=== PATIENT | male | born 1980 | race Caucasian/White ===

== ENCOUNTER 2021-07-28 11:56 | Emergency (ER) | payer OTHER ==
[~2021-07-28] VITALS: Ht 180.3 cm; Wt 114.0 kg
[2021-07-28] MEDS ORDERED: NITROGLYCERIN SUBLINGUAL 0.4 MG BOTTLE OF 25. SL PRN (12:45)
--- NOTE | 2021-07-28 12:51 | RAD ---
EXAM: CT head without contrast INDICATION: Confusion, body shaking, and hypertension, trouble speaking COMPARISON: None TECHNIQUE: Axial CT imaging through the head without intravenous contrast. One or more of the following individualized dose reduction techniques were utilized for this examinat ion: 1. Automated exposure control 2. Adjustment of the mA and/or kV according to patient size 3. Use of iterative reconstruction technique. FINDINGS: The ventricles and sulci are within normal limits. Narvaez-white matter differentiation is maintained. There is no intracranial hemorrhage, acute infarct, or mass lesion. Basal cisterns are clear. The skull and scalp are intact. Paranasal sinuses and mastoid air cells are clear. Globes and orbits are intact. IMPRESSION: No acute intracranial abnormality. FOR INTERNAL CODING PURPOSES Critical result: Findings discussed with the ER physician at 07/28/2021 12:48 PM. RESULT CODE: (C) Electronically signed by: Pema Martinez MD (07/28/2021 12:48 PM) [id number]
--- NOTE | 2021-07-28 13:10 | RAD ---
EXAMINATION: XR CHEST 1V CLINICAL HISTORY: Hypertension EXAM DATE/TIME: 07/28/2021 12:55 PM COMPARISON: None FINDINGS: Lines, Tubes, and Devices: None. Cardiomediastinal Silhouette: Normal heart size. Lungs and Pleura: Pulmonary hypoexpansion without evidence of focal airspace consolidation or pleural effusion. Pulmonary vasculature within normal limits. Bones and Soft Tissues: No acute osseous abnormality. IMPRESSION: No definitive evidence of acute cardiopulmonary abnormality. Electronically signed by: Jhon Bhatt DO (07/28/2021 1:07 PM) TEJINDER
[2021-07-28] MEDS ORDERED: IOHEXOL 350 MG/ML 100 ML VIAL. IV ONE ×2 (13:15→16:15)
[2021-07-28] MEDS ORDERED: CONTRAST GIVEN. MC PRN (13:15)
[2021-07-28] MEDS ORDERED: IV NORMAL SALINE 1,000ML 1,000 ML IV ONE (13:15)
[2021-07-28 13:17] LABS: BASO # 0.1 x10^3/uL (0.0-0.2); BASO % 1 % (0-3); EOS % 1 % (0-3); HEMATOCRIT 52.9 % (39.0-53.0); HEMOGLOBIN 18.3 g/dL (13.0-17.5); LYMPH # 1.3 x10^3/uL (1.0-4.8); LYMPH % 18 % (24-48); MEAN CORPUSCULAR HEMOGLOBIN 31 pg (25-35); MEAN CORPUSCULAR HGB CONC 35 g/dL (31-37); MEAN CORPUSCULAR VOLUME 90 fL (79-100); MONO # 0.5 x10^3/uL (0.0-1.1); MONO % 7 % (0-9); NEUT # 5.1 x10^3uL (1.8-7.7); NEUT % 73 % (31-73); PLATELET COUNT 199 x10^3/uL (140-400); RED CELL DISTRIBUTION WIDTH 13.8 % (11.5-14.5); WHITE BLOOD COUNT 7.1 x10^3/uL (4.0-11.0)
--- NOTE | 2021-07-28 13:22 | EKG ---
[address] [address] Test Date: 2021-07-28 Test Time: 13:03:30 Pat Name: NADEGE DAVISON Department: Room: Gender: M Engineering Programmer: : [id number] Requested By: FELICITY CAMARA Order Number: [id number] Reading MD: Yovany Carrillo MD Measurements Intervals [place] Rate: 121 P: 36 WA: 160 QRS: 17 QRSD: 86 T: -11 QT: 300 QTc: 429 Interpretive Statements SINUS TACHYCARDIA Electronically Signed On 07-30-2021 9:14:06 CDT by Yovany Carrillo MD
[2021-07-28 13:23] LABS: BARBITURATES NEG (NEG); BENZODIAZEPINES NEG (NEG); CANNABINOIDS NEG (NEG); COCAINE NEG (NEG); METHADONE NEG (NEG); OPIATES NEG (NEG); PHENCYCLIDINE NEG (NEG)
[2021-07-28 13:26] LABS: CALCIUM 9.2 mg/dL (8.5-10.1); GFR 83.2; POTASSIUM 4.1 mmol/L (3.5-5.1)
[2021-07-28] MEDS ORDERED: niCARdipine INJ. IV ONE (13:28)
[2021-07-28] MEDS ORDERED: IV NORMAL SALINE 250ML 250 ML ONE (13:28)
[2021-07-28 13:32] LABS: AMPHETAMINE/METHAMPHETAMINE NEG (NEG)
[2021-07-28 13:39] LABS: ALBUMIN 4.3 g/dL (3.4-5.0); ALBUMIN/GLOBULIN RATIO 1.5 (1.0-1.7); TOTAL BILIRUBIN 0.5 mg/dL (0.2-1.0); TOTAL PROTEIN 7.2 g/dL (6.4-8.2)
[2021-07-28 13:42] LABS: BILIRUBIN,URINE NEG (NEG); CLARITY,URINE CLEAR; COLOR,URINE YELLOW; GLUCOSE,URINE NEG (NEG)
[2021-07-28 13:43] LABS: BACTERIA,URINE 0 /HPF (0-FEW); NITRITE,URINE NEG (NEG); RBC,URINE 0 /HPF (0-2); UROBILINOGEN,URINE 0.2 mg/dL (0.2 mg/dL); WBC,URINE OCC /HPF (0-4)
--- NOTE | 2021-07-28 14:08 | RAD ---
STUDY: CT angiography of the head and neck INDICATION: Altered mental status COMPARISON: CT head 07/28/2021 TECHNIQUE: Axial CT imaging of the head and neck utilizing angiography protocol and performed after t he intravenous administration of 100 mL Omnipaque 350 contrast. Multiplanar reformats and 3D MIP acqu isitions were obtained. Encountered areas of stenosis are measured per NASCET criteria. One or more of the following individualized dose reduction techniques were utilized for this examinat ion: 1. Automated exposure control 2. Adjustment of the mA and/or kV according to patient size 3. Use of iterative reconstruction technique. FINDINGS: CTA NECK: Arch/Proximal Great Vessels: The arch is normal in configuration. Great vessel origins are patent. Carotid Bifurcation/Cervical ICA: Bilateral common carotid, internal carotid, and external carotid ar teries are normal in caliber and patent. Vertebral Arteries: Vertebral arteries are normal in caliber and patent. CTA HEAD: Posterior Circulation: Intradural vertebral arteries, basilar artery, superior cerebellar arteries, a nd posterior cerebral arteries are normal in caliber and patent Anterior Circulation: Internal carotid arteries, anterior cerebral arteries, and middle cerebral oscar renan are normal in caliber and patent. Veins: Dural venous sinuses are patent. IMPRESSION: No acute arterial abnormality in the head or neck. Electronically signed by: Pema Martinez MD (07/28/2021 2:06 PM) [id number]
--- NOTE | 2021-07-28 14:23 | PHYS DOC ---
Past History Past Surgical History: No Surgical History (FELICITY CAMARA APRN) Alcohol Use: Rarely (FELICITY CAMARA APRN) General Adult EDM: Chief Complaint: HYPERTENSION HPI: HPI: Patient is a 41-year-old male presents with hypertension. Patient states "I checked my blood pressure this morning it was 200/100 and I felt kind of out of it". Patient is also reporting shortness of breath, headache. Patient's blood pressure on arrival was 180s, HR 120s. Patient is also reporting anxiety. Patient states "I was at work today and I was sitting there when all of a sudden I started breaking out in a sweat". "That is what made me decided to come to the emergency room". Patient is alert and oriented x4. Denies chest pain. Denies drug use. "I did drink 6 or 7 beers yesterday during the day". Patient reports history of hypertension. (FELICITY CAMARA APRN) Review of Systems: Review of Systems: Constitutional: Denies fever or chills Eyes: Denies change in visual acuity HENT: Denies nasal congestion or sore throat Respiratory: Reports shortness of breath. Denies cough. Cardiovascular: Denies chest pain or edema GI: Denies abdominal pain, nausea, vomiting, bloody stools or diarrhea : Denies dysuria Musculoskeletal: Denies back pain or joint pain Integument: Denies rash Neurologic: Reports headache. Denies focal weakness or sensory changes Endocrine: Denies polyuria or polydipsia Lymphatic: Denies swollen glands Psychiatric: Denies depression or anxiety (FELICITY CAMARA APRN) Current Medications: Current Meds: Current Medications Medications (Trade) Dose Ordered Sig/Kathleen Start Time Stop Time Status Last Admin Dose Admin Info (Do NOT chart on this entry -- for MONITORING) 1 each PRN DAILY PRN 07/28/21 13:15 07/30/21 13:14 Iohexol (Omnipaque 350 Mg/ml) 100 ml 1X ONCE 07/28/21 13:15 07/28/21 13:16 DC 07/28/21 13:31 100 ML Lorazepam (Ativan Inj) 2 mg STK-MED ONCE 07/28/21 13:13 07/28/21 13:13 DC Nicardipine HCl (Cardene) 25 mg STK-MED ONCE 07/28/21 13:28 07/28/21 13:29 DC Nicardipine HCl 50 mg/Sodium Chloride 250 ml @ 25 mls/hr CONT PRN 07/28/21 13:15 07/28/21 13:35 25 MLS/HR Nitroglycerin (Nitrostat) 0.4 mg PRN Q5MIN PRN 07/28/21 12:45 07/28/21 12:48 0.4 MG Sodium Chloride 250 ml @ As Directed STK-MED ONCE 07/28/21 13:28 07/28/21 13:29 DC (FELICITY CAMARA APRN) Allergies: Allergies: Allergies Coded Allergies Type Severity Reaction Last Updated Verified No Known Drug Allergies 07/28/21 No (FELICITY CAMARA APRN) Physical Exam: PE: Constitutional: Well developed, well nourished, no acute distress, non-toxic appearance. [] HENT: Normocephalic, atraumatic, bilateral external ears normal, oropharynx moist, no oral exudates, nose normal. [] Eyes: PERRLA, EOMI, conjunctiva normal, no discharge. [] Neck: Normal range of motion, no tenderness, supple, no stridor. [] Cardiovascular: Heart rate sinus tachycardia Lungs & Thorax: Bilateral breath sounds clear to auscultation [] Abdomen: Bowel sounds normal, soft, no tenderness, no masses, no pulsatile masses. [] Skin: Warm, dry, no erythema, no rash. [] Back: No tenderness, no CVA tenderness. [] Extremities: No tenderness, no cyanosis, no clubbing, ROM intact, no edema. [] Neurologic: Alert and oriented X 3, normal motor function, normal sensory function, no focal deficits noted. [] Psychologic: Affect normal, judgement normal, mood normal. [] (FELICITY CAMARA APRN) Current Patient Data: Labs: Laboratory Tests Test 07/28/21 12:43 07/28/21 12:53 07/28/21 13:21 White Blood Count 7.1 x10^3/uL (4.0-11.0) Red Blood Count 5.90 x10^6/uL (4.30-5.70) H Hemoglobin 18.3 g/dL (13.0-17.5) H Hematocrit 52.9 % (39.0-53.0) Mean Corpuscular Volume 90 fL (79-100) Mean Corpuscular Hemoglobin 31 pg (25-35) Mean Corpuscular Hemoglobin Concent 35 g/dL (31-37) Red Cell Distribution Width 13.8 % (11.5-14.5) Platelet Count 199 x10^3/uL (140-400) Neutrophils (%) (Auto) 73 % (31-73) Lymphocytes (%) (Auto) 18 % (24-48) L Monocytes (%) (Auto) 7 % (0-9) Eosinophils (%) (Auto) 1 % (0-3) Basophils (%) (Auto) 1 % (0-3) Neutrophils # (Auto) 5.1 x10^3uL (1.8-7.7) Lymphocytes # (Auto) 1.3 x10^3/uL (1.0-4.8) Monocytes # (Auto) 0.5 x10^3/uL (0.0-1.1) Eosinophils # (Auto) 0.0 x10^3/uL (0.0-0.7) Basophils # (Auto) 0.1 x10^3/uL (0.0-0.2) Urine Collection Type Unknown Urine Color Yellow Urine Clarity Clear Urine pH 7.5 Urine Specific [place] 1.020 Urine Protein 100 mg/dl (NEG-TRACE) Urine Glucose (UA) Neg mg/dL (NEG) Urine Ketones (Stick) 15 mg/dL (NEG) Urine Blood Neg (NEG) Urine Nitrite Neg (NEG) Urine Bilirubin Neg (NEG) Urine Urobilinogen Dipstick 0.2 mg/dL (0.2 mg/dL) Urine Leukocyte Esterase Trace (NEG) Urine RBC 0 /HPF (0-2) Urine WBC Occ /HPF (0-4) Urine Bacteria 0 /HPF (0-FEW) Urine Mucus Slight /LPF Sodium Level 139 mmol/L (136-145) Potassium Level 4.1 mmol/L (3.5-5.1) Chloride Level 99 mmol/L (98-107) Carbon Dioxide Level 28 mmol/L (21-32) Anion Gap 12 (6-14) Blood Urea Nitrogen 12 mg/dL (8-26) Creatinine 1.0 mg/dL (0.7-1.3) Estimated GFR (Cockcroft-Gault) 83.2 BUN/Creatinine Ratio 12 (6-20) Glucose Level 121 mg/dL (70-99) H Calcium Level 9.2 mg/dL (8.5-10.1) Total Bilirubin 0.5 mg/dL (0.2-1.0) Aspartate Amino Transferase (AST) 33 U/L (15-37) Alanine Aminotransferase (ALT) 59 U/L (16-63) Alkaline Phosphatase 89 U/L (46-116) Troponin I Quantitative < 0.017 ng/mL (0-0.055) PI-Reb-C-Type Natriuretic Peptide 11 pg/mL (0-124) Total Protein 7.2 g/dL (6.4-8.2) Albumin 4.3 g/dL (3.4-5.0) Albumin/Globulin Ratio 1.5 (1.0-1.7) Urine Opiates Screen Neg (NEG) Urine Methadone Screen Neg (NEG) Urine Barbiturates Neg (NEG) Urine Phencyclidine Screen Neg (NEG) Urine Amphetamine/Methamphetamine Neg (NEG) Urine Benzodiazepines Screen Neg (NEG) Urine Cocaine Screen Neg (NEG) Urine Cannabinoids Screen Neg (NEG) Urine Ethyl Alcohol Pos (NEG) Glucose (Fingerstick) 124 mg/dL (70-99) H Prothrombin Time 10.4 SEC (9.4-11.4) Prothrombin Time INR 1.0 (0.9-1.1) Activated Partial Thromboplast Time 23 SEC (23-33) D-Dimer (Disha) Pending Vital Signs: Vital Signs Date Time Temp Pulse Resp B/P (MAP) Pulse Ox O2 Delivery O2 Flow Rate FiO2 07/28/21 12:55 98.7 109 18 203/141 99 (FELICITY CAMARA APRN) EKG: EKG: Sinus tachycardia, heart rate 121 bpm. [] Read by Dr. Beebe at 1311. (FELICITY CAMARA APRN) Radiology/Procedures: Radiology/Procedures: []STUDY: CT angiography of the head and neck INDICATION: Altered mental status COMPARISON: CT head 07/28/2021 TECHNIQUE: Axial CT imaging of the head and neck utilizing angiography protocol and performed after the intravenous administration of 100 mL Omnipaque 350 contrast. Multiplanar reformats and 3D MIP acquisitions were obtained. Encountered areas of stenosis are measured per NASCET criteria. One or more of the following individualized dose reduction techniques were utilized for this examination: 1. Automated exposure control 2. Adjustment of the mA and/or kV according to patient size 3. Use of iterative reconstruction technique. FINDINGS: CTA NECK: Arch/Proximal Great Vessels: The arch is normal in configuration. Great vessel origins are patent. Carotid Bifurcation/Cervical ICA: Bilateral common carotid, internal carotid, and external carotid arteries are normal in caliber and patent. Vertebral Arteries: Vertebral arteries are normal in caliber and patent. CTA HEAD: Posterior Circulation: Intradural vertebral arteries, basilar artery, superior cerebellar arteries, and posterior cerebral arteries are normal in caliber and patent Anterior Circulation: Internal carotid arteries, anterior cerebral arteries, and middle cerebral arteries are normal in caliber and patent. Veins: Dural venous sinuses are patent. IMPRESSION: No acute arterial abnormality in the head or neck. Electronically signed by: Pema Martinez MD (07/28/2021 2:06 PM) [id number] EXAMINATION: XR CHEST 1V CLINICAL HISTORY: Hypertension EXAM DATE/TIME: 07/28/2021 12:55 PM COMPARISON: None FINDINGS: Lines, Tubes, and Devices: None. Cardiomediastinal Silhouette: Normal heart size. Lungs and Pleura: Pulmonary hypoexpansion without evidence of focal airspace consolidation or pleural effusion. Pulmonary vasculature within normal limits. Bones and Soft Tissues: No acute osseous abnormality. IMPRESSION: No definitive evidence of acute cardiopulmonary abnormality. EXAM: CT head without contrast INDICATION: Confusion, body shaking, and hypertension, trouble speaking COMPARISON: None TECHNIQUE: Axial CT imaging through the head without intravenous contrast. One or more of the following individualized dose reduction techniques were utilized for this examination: 1. Automated exposure control 2. Adjustment of the mA and/or kV according to patient size 3. Use of iterative reconstruction technique. FINDINGS: The ventricles and sulci are within normal limits. Narvaez-white matter differentiation is maintained. There is no intracranial hemorrhage, acute infarct, or mass lesion. Basal cisterns are clear. The skull and scalp are intact. Paranasal sinuses and mastoid air cells are clear. Globes and orbits are intact. IMPRESSION: No acute intracranial abnormality. FOR INTERNAL CODING PURPOSES Critical result: Findings discussed with the ER physician at 07/28/2021 12:48 PM. RESULT CODE: (C) (FELICITY CAMARA APRN) Heart Score: C/O Chest Pain: No Risk Factors: Risk Factors: DM, Current or recent (<one month) smoker, HTN, HLP, family history of CAD, obesity. Risk Scores: Score 0 - 3: 2.5% MACE over next 6 weeks - Discharge Home Score 4 - 6: 20.3% MACE over next 6 weeks - Admit for Clinical Observation Score 7 - 10: 72.7% MACE over next 6 weeks - Early Invasive Strategies (FELICITY CAMARA APRN) Course & Med Decision Making: Course & Med Decision Making Pertinent Labs and Imaging studies reviewed. (See chart for details) [] 41-year-old male presents with hypertension. On arrival patient's blood pressure was in the 180s/100s. Patient was tachycardic at 120s. Patient given 2 nitros and blood pressure decreased to 160s. Patient is still tachycardic. Patient given NS bolus, aspirin, Ativan. CT head was negative for intracranial bleeding or abnormality. CTA head and neck ordered which was unremarkable. NIH 0. Covid test is negative. Patient is alert and oriented x4. D-dimer elevated at 0.90. CTA ordered. No evidence of PE indicated on imaging. Urine negative for infection. UDS positive for alcohol, less than 10. I originally spoke with Dr. Villasenor who suggested patient be admitted for hypertensive encephalopathy and given aspirin. Patient unable to be admitted to [facility]. I spoke with Dr. Shah who is willing to accept patient at [facility]. Dr. Nielson was consulted and will be seeing patient at [facility]. Patient's blood pressure has continued to stay below 180. Symptoms have improved. Patient is saying that he feels much better and he does not want to be admitted to the hospital. Discussed risk of leaving and not being admitted. Patient states that he understands the risk but does not want to be admitted. Patient does report that he has had alcohol withdrawal symptoms in the past. "I wonder if it is because I drink too much this weekend". "I may not have taken my blood pressure medicine for the last couple of days". Patient agrees to sign AMA paperwork. Patient's blood pressure is 176/100, heart rate 120s upon disposition. Patient states that he will call his PCP and make a follow-up appointment. (FELICITY CAMARA APRN) Course & Med Decision Making I was the Attending physician on the above date of service of this patient. This patient was evaluated, examined, treated, and dispositioned from the emergency department by the mid-level practitioner. PRODUCT MARKETING COORDINATOR requested assistance on management while in ER setting, likely hypertensive encephalopathy that significantly improved with x2 sublingual nitro administered in ER setting. I discussed need for neurology consultation and hospital admission for continued inpatient medical management Electronically signed, Dada Beebe DO (DADA BEEBE DO) Claire Disclaimer: Claire Disclaimer: This electronic medical record was generated, in whole or in part, using a voice recognition dictation system. (FELICITY CAMARA APRN) Departure Departure: Impression: Primary Impression: Hypertensive emergency Additional Impression: Alcoholism Disposition: 01 HOME / SELF CARE / HOMELESS Condition: STABLE Referrals: SOL HALL (PCP) Patient Instructions: Alcohol Withdrawal, Hypertension, [id number] Additional Instructions: You are seen in the emergency room for elevated blood pressure and altered mental status. You were given nitro x2 in the emergency room which decreased your blood pressure. CTA of head and neck was negative for acute abnormalities. We suggested that you stay as an inpatient to be monitored and possibly have further testing. You were unwilling to be admitted and signed AMA paperwork. Please call your PCP and make an appointment to discuss further treatment. Return to the emergency room if you have worsening symptoms or concerns EMERGENCY DEPARTMENT GENERAL DISCHARGE INSTRUCTIONS Thank you for coming to [facility] (ED) today and trusting us with you care. We trust that you had a positivie experience in our Emergency Department. If you wish to speak to the department management, you may call the director at [phone]. YOUR FOLLOW UP INSTRUCTIONS ARE FOLLOWS: 1. Do you have a private Doctor? If you do not have a private doctor, please ask for a resource list of physicians or clinics that may be able to assist you with follow up care. 2. The Emergency Physician has interpreted your x-rays. The X-Ray specialist will also review them. If there is a change in the findings, you will be notified in 48 hours when at all possible. 3. A lab test or culture has been done, your results will be reviewed and you will be notified if you need a change in treatment. ADDITIONAL INSTRUCTIONS AND INFORMATION: 1. Your care today has been supervised by a physician who is specially trained in emergency care. Many problems require more than one evaluation for a complete diagnosis and treatment. We recommend that you schedule your follow up appointment as recommended to ensure complete treatment of you illness or injury. If you are unable to obtain follow up care and continue to have a problem, or if your condition worsens, we recommend that you return to the ED. 2. We are not able to safely determine your condition over the phone nor are we able to give sound medical advice over the phone. For these safety reasons, if you call for medical advice we will ask you to come to the ED for further evaluation. 3. If you have any questions regarding these discharge instructions please call the ED at [phone]. SAFETY INFORMATION: In the interest of safety, wellness, and injury prevention; we encourage you to wear your sealbelt, if you smoke; quite smoking, and we encourage family to use a protective helmet for bicycling and other sporting events that present an increased risk for head injury. IF YOUR SYMPTOMS WORSEN OR NEW SYMPTOMS DEVELOP, OR YOU HAVE CONCERNS ABOUT YOUR CONDITION; OR IF YOUR CONDITION WORSENS WHILE YOU ARE WAITING FOR YOUR FOLLOW UP APPOINTMENT; EITHER CONTACT YOUR PRIMARY CARE DOCTOR, THE PHYSICIAN WHOSE NAME AND NUMBER YOU WERE GIVEN, OR RETURN TO THE ED IMMEDIATELY. FELICITY CAMARA APRN Jul 28, 2021 14:23 DADA BEEBE DO Jul 29, 2021 06:17
[2021-07-28 14:56] VITALS: BP 162/105
--- NOTE | 2021-07-28 16:29 | RAD ---
CT angiography chest 07/28/2021 4:02 PM Indication: Reason: SHORTNESS OF BREATH / Spl. Instructions: / History: Technique: Multiple contiguous axial images were obtained through the chest after administration of i ntravenous iodinated contrast. Coronal, sagittal, and 3-D MIP reformations were created. Comparison: Chest radiograph, earlier today Findings: Exam somewhat limited by density of contrast bolus the pulmonary arteries. There no large filling def ects within central pulmonary arteries are identified. Evaluation of distal segmental and subsegmenta l PE is not possible. Heart size is normal. No pericardial effusion is appreciated. No pathologically enlarged mediastinal lymph nodes are seen. . The thoracic aorta is grossly normal in course and cont our. There is no pneumothorax or pleural effusion.. Minimal scattered areas of atelectasis noted. No other acute infiltrate is seen. Limited visualization of the upper abdomen demonstrates no acute abno rmality. No acute osseous abnormalities are appreciated. Impression: 1. Somewhat limited study without evidence of central pulmonary embolus 2. No other acute cardiopulmonary process is identified CT DOSING PQRS STATEMENT: One or more of the following individualized dose reduction techniques were utilized for this examinat ion: 1. Automated exposure control 2. Adjustment of the mA and/or kV according to patient size 3. Use of iterative reconstruction technique Electronically signed by: Chris Rasmussen MD (07/28/2021 4:26 PM) [id number]
[2021-07-28] MEDS ORDERED: ASPIRIN CHEWABLE 81 MG TABLET. PO ONE (17:15)
== END 2021-07-28 17:45 | disposition left against medical advice (07) ==
LOC: ER 11:56 → UNDOADMOB 14:13 → INTOOBSV 14:13 → ICU 14:13 → UNDODISOB 18:45
DX: I16.1 Hypertensive emergency (principal); I67.4 Hypertensive encephalopathy; F10.20 Alcohol dependence, uncomplicated; Z20.822 Contact with and (suspected) exposure to COVID-19; Y90.0 Blood alcohol level of less than 20 mg/100 ml
CPT/HCPCS: 36415; 70450; 70496; 70498; 71045; 71275; 80053; 80307; 81001; 82947; 83880; 84484; 85025; 85379; 85610; 85730; 87086; 87426; 93005; 96365; 96366; 96375; 99285; G0480; J2060; J7030; J7050; Q9967; U0003; G0378; G0379